=== PATIENT | male | born 1990 | race Hispanic/Latino ===

== ENCOUNTER 2017-09-16 22:58 | Emergency (ER) | payer BC ==
[2017-09-16 23:36] VITALS: BP 116/72; PULSE 56; RESP 18; TEMP 97.9; O2SAT 98
[2017-09-17] MEDS ORDERED: Sodium Chloride 0.9% 1,000 ML IV STA (00:09)
[2017-09-17 01:03] LABS: BASO # 0.1 K/uL (0.0-0.2); BASO % 0.6 % (0.0-2.0); EOS # 0.3 K/uL (0.0-0.7); EOS % 3.1 % (0.0-4.0); HEMOGLOBIN 15.7 g/dL (12.0-18.0); LYMPH # 2.4 K/uL (1.0-4.3); LYMPH % 23.7 % (20.0-40.0); MEAN CELL VOLUME 94.9 fl (80.0-94.0); MEAN CORPUSCULAR HEMOGLOBIN 32.6 pg (27.0-31.0); MEAN CORPUSCULAR HGB CONC 34.4 g/dL (33.0-37.0); MONO # 0.7 K/uL (0.0-0.8); MONO % 7.2 % (0.0-10.0); NEUT # 6.7 K/uL (1.8-7.0); NEUT % 65.4 % (50.0-75.0); NRBC % 0.2 % (0.0-0.0); RBC 4.81 Mil/uL (4.40-5.90); RED CELL DISTRIBUTION WIDTH 12.7 % (11.5-14.5); WHITE BLOOD COUNT 10.2 K/uL (4.8-10.8)
[2017-09-17 01:12] LABS: ALB/GLOB RATIO 1.2 (1.0-2.1); ALBUMIN 4.1 g/dL (3.5-5.0); ALT/SGPT 50 U/L (21-72); AST/SGOT 32 U/L (17-59); BLOOD UREA NITROGEN 16 mg/dl (9-20); CALCIUM 9.3 mg/dL (8.4-10.2); GFR AFRICAN-AMERICAN > 60; GFR NON-AFRICAN AMERICAN > 60; LIPASE 1327 U/L (23-300)
--- NOTE | 2017-09-17 01:31 | ED PDOC ---
HPI: Abdomen Time Seen by Provider: 09/16/17 23:44 Chief Complaint (Nursing): Abdominal Pain Chief Complaint (Provider): Abdominal Pain History Per: Patient History/Exam Limitations: no limitations Onset/Duration Of Symptoms: Days (x1) Outside of [place] travel?: No Current Symptoms Are (Timing): Still Present Quality Of Discomfort: Cramping Associated Symptoms: Chills, Nausea, Diarrhea. denies: Fever, Urinary Symptoms Additional Complaint(s): Luis Dominguez is a 27 year old male with no past medical history, who is presenting to the ER with complaints of cramping abdominal pain with associated vomiting, and diarrhea, onset 3 am yesterday. Patient reports that he ate [place] food and mozzarella sticks the night before and since then he is unable to tolerate food and fluids PO. He states his vomit is non-bilious and non- bloody and reports watery diarrhea, with one episode having streaks of blood. Patient used Imodium and Gatorade with no relief of symptoms and states he began feeling light headed and having chills within the last few hours. He denies any rectal pain, fevers, urinary symptoms, sick contacts or recent travel. PMD: none provided Past Medical History Reviewed: Historical Data, Nursing Documentation, Vital Signs Vital Signs: Last Vital Signs Temp 97.9 F 09/16/17 23:33 Pulse 56 L 09/16/17 23:33 Resp 18 09/16/17 23:33 BP 116/72 09/16/17 23:33 Pulse Ox 98 09/17/17 05:11 - Medical History PMH: No Chronic Diseases - Surgical History Surgical History: No Surg Hx - Family History Family History: States: No Known Family Hx - Social History Current smoker - smoking cessation education provided: No Alcohol: None Drugs: Cannabis - Home Medications Home Medications: Ambulatory Orders Medication Instructions Recorded Famotidine [Pepcid] 40 mg PO DAILY PRN #14 tab 09/17/17 Ondansetron ODT [Zofran ODT] 1 odt PO Q6 PRN #20 odt 09/17/17 - Allergies Allergies/Adverse Reactions: Allergies Allergy/AdvReac Type Severity Reaction Status Date / Time Penicillins Allergy RASH Verified 09/16/17 23:36 Review of Systems ROS Statement: Except As Marked, All Systems Reviewed And Found Negative Constitutional: Positive for: Chills. Negative for: Fever Gastrointestinal: Positive for: Nausea, Vomiting, Abdominal Pain, Diarrhea Genitourinary Male: Negative for: Other (urinary symptoms) Neurological: Positive for: Other (light headed) Physical Exam - Reviewed Nursing Documentation Reviewed: Yes Vital Signs Reviewed: Yes - Physical Exam ENT: Positive for: Other (dry mucous membranes) Gastrointestinal/Abdominal: Positive for: Bowel Sounds (hyperactive) - Laboratory Results Result Diagrams: 09/17/17 00:44 09/17/17 00:44 - ECG O2 Sat by Pulse Oximetry: 98 (RA) Pulse Ox Interpretation: Normal Medical Decision Making Medical Decision Making: Time: 00:09 Impression: vomiting, diarrhea Differentials (including but not limited to): AGE, dehydration, electrolyte abnormalities, pancreatitis Plan: --CMP --Lipase --Magnesium --Phosphorous --ED Urine Dipstick --CBC --Bentyl 20 mg PO --Dexterose 5%-0.9% NS 500 ml --IV Fluids --Zofran 4 mg PO --US Abdomen EXAM: US Abdomen Limited, Right Upper Quadrant CLINICAL HISTORY: 27 years old, male; Pain; Abdominal pain; Generalized; Additional info: Pancreatitis TECHNIQUE: Real-time ultrasound of the right upper quadrant with image documentation. COMPARISON: No relevant prior studies available. FINDINGS: Artifacts: Limited due to bowel gas shadowing. Limited due to shadowing from the ribs. Liver: Clips hepatic flow Gallbladder: The gallbladder wall measures 3 mm.There was no right upper quadrant tenderness during the sonographic examination. Correlation with patient's pain medication status is recommended. No gallstones. Common bile duct: Borderline prominence of common bile duct measuring 5 mm. No stones. Pancreas: The pancreas is not well-seen. Right kidney: Unremarkable. No stones. No solid mass. No hydronephrosis. Aorta: The visualized portions of the abdominal aorta appears unremarkable. Inferior vena cava: IVC is seen. IMPRESSION: No acute findings. Thank you for allowing us to participate in the care of your patient. Dictated and Authenticated by: Slava Hebert MD 09/17/2017 4:33 AM Eastern Time ([place] & [place]) Scribe Attestation: Documented by Kelin Wood acting as a scribe for Jacquie Brown MD. Scribe Attestation: All medical record entries made by the Scribe were at my direction and personally dictated by me. I have reviewed the chart and agree that the record accurately reflects my personal performance of the history, physical exam, medical decision making, and the department course for this patient. I have also personally directed, reviewed, and agree with the discharge instructions and disposition. Disposition - Clinical Impression Clinical Impression: Vomiting and diarrhea, Pancreatitis - Disposition Referrals: [facility] Flynn [Outside] Disposition Time: 17:00 Condition: IMPROVED Additional Instructions: LIQUID DIET 48 HOURS. ADVANCE TOLERATED. REST. FOLLOW UP WITH [facility] OR YOUR PMD IN 48 HOURS FOR REEVALUATION. Prescriptions: Famotidine [Pepcid] 40 mg PO DAILY PRN #14 tab PRN Reason: reflux Ondansetron ODT [Zofran ODT] 1 odt PO Q6 PRN #20 odt PRN Reason: Nausea/Vomiting Instructions: Pancreatitis, Viral Gastroenteritis, Adult (DC) Forms: [facility] ED School/Work Excuse
--- NOTE | 2017-09-17 10:40 | US ---
HISTORY: pancreatitis COMPARISON: None. TECHNIQUE: Sonographic evaluation of the right upper quadrant of the abdomen. FINDINGS: LIVER: Measures 15.2 cm in length. Normal echogenicity of the liver parenchyma. No mass. No intrahepatic bile duct dilatation. GALLBLADDER: Unremarkable. No gallstones. COMMON BILE DUCT: Measures 5 mm. No stones. No dilatation. PANCREAS: Not well-visualized. RIGHT KIDNEY: Measures 12.1 x 5.8 x 4.8 cm in length. Normal echogenicity. No calculus, mass, or hydronephrosis. AORTA: No aneurysmal dilatation. IVC: Unremarkable. OTHER FINDINGS: None . IMPRESSION: Unremarkable right upper quadrant ultrasound.
== END 2017-09-17 05:40 | disposition home or self-care (01) ==
LOC: H.ER 22:58
DX: K85.90 Acute pancreatitis without necrosis or infection, unspecified (principal); Z88.0 Allergy status to penicillin
CPT/HCPCS: 76705; 80053; 83690; 83735; 84100; 85025; 96360; 99283; J7040; J7042